=== PATIENT | female | born 2000 | race Caucasian/White ===

== ENCOUNTER 2020-10-24 07:51 | Emergency (ER) | payer OTHER ==
[~2020-10-24] VITALS: Ht 154.9 cm; Wt 45.5 kg
[2020-10-24 07:58] VITALS: BP 126/91; PULSE 100
[2020-10-24] MEDS ORDERED: DOXYCYCLINE 10100 MG PO (08:20)
[2020-10-24 08:39] VITALS: TEMP 101.2
== END 2020-10-24 08:49 | disposition home or self-care (01) ==
LOC: COL.ER 07:51
DX: N61.0 Mastitis without abscess (principal); R11.0 Nausea
CPT/HCPCS: J0696